=== PATIENT | female | born 2000 | race Caucasian/White ===

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

== ENCOUNTER 2018-05-04 16:04 | Emergency (ER) | payer OTHER ==
[~2018-05-04 16:04] MED LIST: [UNRECOGNIZED DRUG - OTHER] PO
[2018-05-04] MEDS ORDERED: BUSP15TA69 PO (16:17)
[2018-05-04] MEDS ORDERED: ETON68IM SQ (16:17)
--- NOTE | 2018-05-04 16:24 | ER Report ---
History and Physical Time Seen By MD: 16:24 HPI/ROS CHIEF COMPLAINT: Suicide attempt HISTORY OF PRESENT ILLNESS: This is a 18 year old female. She attempted suicide last night, unsuccessfully. Tried a bag, which she describes as a bag black led with helium. She exhaled and then put the bag over her head and breathed in. She said the technique would cause unconsciousness within 2 minutes and within 10 minutes. She says that she unfortunately woke later, suspecting that this was because she had a mixture of 80% helium instead of 100%. She does have some 100% helium on order. She is voluntary for admission to [facility] to get some help. Denies alcohol or drug use. No other self harm behaviors. Allergies: Coded Allergies: Penicillins (Verified Allergy, Intermediate, 05/04/18) hives Home Meds Reported Medications Etonogestrel (NEXPLANON) 68 Mg Implant, 68 MG SQ DIRECTED, IMPLANT 05/04/18 Buspirone Hcl (BUSPIRONE HCL) 15 Mg Tablet, 15 MG PO PRN PRN for ANXIETY, #10 TAB 05/04/18 Discontinued Reported Medications [Sentralopram] No Conflict Check, 10 MG PO 11/23/17 Reviewed Nurses Notes: Yes Hx Substance Use Disorder: No Hx Alcohol Use: No Constitutional Vital Sign - Last 24 Hours 05/04/18 05/04/18 16:09 18:11 Temp 98.1 Pulse 72 50 Resp 16 16 B/P (MAP) 117/59 101/63 (76) Pulse Ox 94 97 O2 Delivery Room Air Room Air Physical Exam General Appearance: The patient is alert, has no immediate need for airway protection and no current signs of toxicity. Eyes: Pupils equal and round no injection. ENT: Normal oral mucosa. Moist mucous membranes. Neck: Neck is supple and non tender. Respiratory: Chest is non tender, lungs are clear to auscultation. Cardiac: regular rate and rhythm Gastrointestinal: Abdomen is soft and non tender, no masses, bowel sounds normal. Musculoskeletal: Extremities have full range of motion. Skin: No rashes or lesions. DIFFERENTIAL DIAGNOSIS: After history and physical exam differential diagnosis was considered for suicidal ideation with suicide attempt last night. Medical Decision Making Data Points Result Diagram: 05/04/18 1649 05/04/18 1649 Laboratory Hematology Test 05/04/18 16:23 05/04/18 16:49 Urine Color Yellow Urine Clarity Clear Urine pH 6.0 pH (4.8-9.5) Urine Specific [place] 1.016 Urine Protein Negative mg/dL (NEGATIVE) Urine Glucose (UA) Negative mg/dL (NEGATIVE) Urine Ketones Negative mg/dL (NEGATIVE) Urine Blood Moderate (NEGATIVE) Urine Nitrite Negative (NEGATIVE) Urine Bilirubin Negative (NEGATIVE) Urine Urobilinogen Negative mg/dL (0.2-1.9) Urine Leukocyte Esterase Negative (NEGATIVE) Urine RBC 7 /HPF (0-2/HPF) Urine WBC 1 /HPF (0-5/HPF) Urine Squamous Epithelial Cells Few /LPF (</=FEW) Urine Bacteria Negative /HPF (NONE-FEW) Urine Mucus Few /HPF (NONE-FEW) Urine HCG, Qualitative Negative (NEGATIVE) Urine Opiates Screen Negative Urine Barbiturates Screen Negative Ur Tricyclic Antidepressants Screen Negative Urine Phencyclidine Screen Negative Urine Amphetamines Screen Negative Urine Benzodiazepines Screen Negative Urine Cocaine Screen Negative Urine Cannabinoids Screen Positive Red Blood Count 5.18 M/uL (4.17-5.56) Mean Corpuscular Volume 76.6 fL (80.0-96.0) Mean Corpuscular Hemoglobin 26.1 pg (26.0-33.0) Mean Corpuscular Hemoglobin Concent 34.1 g/dL (32.0-36.0) Red Cell Distribution Width 16.2 % (11.5-14.5) Mean Platelet Volume 9.7 fL (7.2-11.1) Neutrophils (%) (Auto) 68.0 % (39.4-72.5) Lymphocytes (%) (Auto) 21.9 % (17.6-49.6) Monocytes (%) (Auto) 8.1 % (4.1-12.4) Eosinophils (%) (Auto) 1.4 % (0.4-6.7) Basophils (%) (Auto) 0.6 % (0.3-1.4) Nucleated RBC Relative Count (auto) 0.1 /100WBC Neutrophils # (Auto) 7.2 K/uL (2.0-7.4) Lymphocytes # (Auto) 2.3 K/uL (1.3-3.6) Monocytes # (Auto) 0.9 K/uL (0.3-1.0) Eosinophils # (Auto) 0.2 K/uL (0.0-0.5) Basophils # (Auto) 0.1 K/uL (0.0-0.1) Nucleated RBC Absolute Count (auto) 0.01 K/uL Sodium Level 141 mmol/L (137-145) Potassium Level 3.5 mmol/L (3.5-5.0) Chloride Level 106 mmol/L (98-107) Carbon Dioxide Level 24 mmol/L (22-31) Blood Urea Nitrogen 8 mg/dl (7-18) Creatinine 0.90 mg/dl (0.52-1.04) Glomerular Filtration Rate Calc > 60.0 Random Glucose 95 mg/dl (75-110) Calcium Level 8.8 mg/dl (8.4-10.2) Magnesium Level 1.8 mg/dl (1.7-2.2) Total Bilirubin 0.4 mg/dl (0.2-1.3) Aspartate Amino Transf (AST/SGOT) 17 U/L (0-35) Alanine Aminotransferase (ALT/SGPT) 28 U/L (0-56) Alkaline Phosphatase 96 U/L (0-126) Total Protein 6.7 g/dl (6.3-8.2) Albumin 3.7 g/dl (3.5-5.0) Salicylates Level < 10 mg/L Salicylate Last Dose Date unk Acetaminophen Level < 10 ug/ml Serum Alcohol < 10 mg/dl Chemistry Test 05/04/18 16:23 05/04/18 16:49 Urine Color Yellow Urine Clarity Clear Urine pH 6.0 pH (4.8-9.5) Urine Specific [place] 1.016 Urine Protein Negative mg/dL (NEGATIVE) Urine Glucose (UA) Negative mg/dL (NEGATIVE) Urine Ketones Negative mg/dL (NEGATIVE) Urine Blood Moderate (NEGATIVE) Urine Nitrite Negative (NEGATIVE) Urine Bilirubin Negative (NEGATIVE) Urine Urobilinogen Negative mg/dL (0.2-1.9) Urine Leukocyte Esterase Negative (NEGATIVE) Urine RBC 7 /HPF (0-2/HPF) Urine WBC 1 /HPF (0-5/HPF) Urine Squamous Epithelial Cells Few /LPF (</=FEW) Urine Bacteria Negative /HPF (NONE-FEW) Urine Mucus Few /HPF (NONE-FEW) Urine HCG, Qualitative Negative (NEGATIVE) Urine Opiates Screen Negative Urine Barbiturates Screen Negative Ur Tricyclic Antidepressants Screen Negative Urine Phencyclidine Screen Negative Urine Amphetamines Screen Negative Urine Benzodiazepines Screen Negative Urine Cocaine Screen Negative Urine Cannabinoids Screen Positive White Blood Count 10.5 k/uL (4.5-11.0) Red Blood Count 5.18 M/uL (4.17-5.56) Hemoglobin 13.5 g/dL (12.0-16.0) Hematocrit 39.7 % (34.0-47.0) Mean Corpuscular Volume 76.6 fL (80.0-96.0) Mean Corpuscular Hemoglobin 26.1 pg (26.0-33.0) Mean Corpuscular Hemoglobin Concent 34.1 g/dL (32.0-36.0) Red Cell Distribution Width 16.2 % (11.5-14.5) Platelet Count 304 K/uL (150-450) Mean Platelet Volume 9.7 fL (7.2-11.1) Neutrophils (%) (Auto) 68.0 % (39.4-72.5) Lymphocytes (%) (Auto) 21.9 % (17.6-49.6) Monocytes (%) (Auto) 8.1 % (4.1-12.4) Eosinophils (%) (Auto) 1.4 % (0.4-6.7) Basophils (%) (Auto) 0.6 % (0.3-1.4) Nucleated RBC Relative Count (auto) 0.1 /100WBC Neutrophils # (Auto) 7.2 K/uL (2.0-7.4) Lymphocytes # (Auto) 2.3 K/uL (1.3-3.6) Monocytes # (Auto) 0.9 K/uL (0.3-1.0) Eosinophils # (Auto) 0.2 K/uL (0.0-0.5) Basophils # (Auto) 0.1 K/uL (0.0-0.1) Nucleated RBC Absolute Count (auto) 0.01 K/uL Glomerular Filtration Rate Calc > 60.0 Calcium Level 8.8 mg/dl (8.4-10.2) Magnesium Level 1.8 mg/dl (1.7-2.2) Total Bilirubin 0.4 mg/dl (0.2-1.3) Aspartate Amino Transf (AST/SGOT) 17 U/L (0-35) Alanine Aminotransferase (ALT/SGPT) 28 U/L (0-56) Alkaline Phosphatase 96 U/L (0-126) Total Protein 6.7 g/dl (6.3-8.2) Albumin 3.7 g/dl (3.5-5.0) Salicylates Level < 10 mg/L Salicylate Last Dose Date unk Acetaminophen Level < 10 ug/ml Serum Alcohol < 10 mg/dl Toxicology Test 05/04/18 16:23 05/04/18 16:49 Urine Opiates Screen Negative Urine Barbiturates Screen Negative Ur Tricyclic Antidepressants Screen Negative Urine Phencyclidine Screen Negative Urine Amphetamines Screen Negative Urine Benzodiazepines Screen Negative Urine Cocaine Screen Negative Urine Cannabinoids Screen Positive Salicylates Level < 10 mg/L Salicylate Last Dose Date unk Acetaminophen Level < 10 ug/ml Serum Alcohol < 10 mg/dl Urinalysis Test 05/04/18 16:23 Urine Color Yellow Urine Clarity Clear Urine pH 6.0 pH (4.8-9.5) Urine Specific [place] 1.016 Urine Protein Negative mg/dL (NEGATIVE) Urine Glucose (UA) Negative mg/dL (NEGATIVE) Urine Ketones Negative mg/dL (NEGATIVE) Urine Blood Moderate (NEGATIVE) Urine Nitrite Negative (NEGATIVE) Urine Bilirubin Negative (NEGATIVE) Urine Urobilinogen Negative mg/dL (0.2-1.9) Urine Leukocyte Esterase Negative (NEGATIVE) Urine RBC 7 /HPF (0-2/HPF) Urine WBC 1 /HPF (0-5/HPF) Urine Squamous Epithelial Cells Few /LPF (</=FEW) Urine Bacteria Negative /HPF (NONE-FEW) Urine Mucus Few /HPF (NONE-FEW) Urine HCG, Qualitative Negative (NEGATIVE) ED Course/Re-evaluation ED Course Labs unremarkable other than her drug screen being positive for Cannabinoids. Discussed with Joelle who accepted for admission to [facility]. Decision to Disposition Date: May 04, 2018 Decision to Disposition Time: 17:29 Depart Departure Latest Vital Signs Vital Signs Date Time Temp Pulse Resp B/P (MAP) Pulse Ox O2 Delivery O2 Flow Rate FiO2 05/04/18 18:11 50 16 101/63 (76) 97 Room Air 05/04/18 16:09 98.1 Impression: Primary Impression: Suicide attempt Condition: Condition Unchanged Disposition: XFER TO [facility] JOVI LOPEZ MD 1, 2018 16:24
[2018-05-04 17:03] LABS: PLATELET COUNT, AUTOMATED 304 K/uL (150-450)
[2018-05-04 18:11] VITALS: BP 101/63
== END 2018-05-04 18:36 ==
LOC: ER 16:53
DX: T59.892A Toxic effect of other specified gases, fumes and vapors, intentional self-harm, initial encounter (principal)
CPT/HCPCS: 36415; 80305; 80320; 80329; 81001; 81025; 82040; 82247; 82310; 82374; 82435; 82565; 82947; 83735; 84075; 84132; 84155; 84295; 84443; 84450; 84460; 84520; 85025; 99284

== ENCOUNTER 2018-05-04 18:08 | Inpatient (IN) | payer OTHER ==
[~2018-05-04] VITALS: Ht 177.8 cm; Wt 110.2 kg
[~2018-05-04 18:08] MED LIST changes: +BUSP15TA69 PO; +ETON68IM SQ
[2018-05-04] MEDS ORDERED: ACETAMINOPHEN 325 MG TAB PO PRN (18:35)
[2018-05-04] MEDS ORDERED: MAG HYD/AL HYD/SIMETH 30ML UDC PO PRN (18:35)
[2018-05-04 19:49] VITALS: BP 100/64
[2018-05-04 22:33] VITALS: BP 100/64
[2018-05-05 06:17] VITALS: BP 110/62
[2018-05-05] MEDS: MULTIVITAMINS TAB PO SCH (08:14)
[2018-05-05] MEDS: CHOLECALCIFEROL 1000 UNIT TAB PO SCH (12:49)
[2018-05-05] MEDS: buPROPion SR 150 MG TABCR PO SCH (12:50)
[2018-05-05] MEDS: OMEGA-3 500 MG CAP PO SCH (12:50)
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
[2018-05-05 16:38] VITALS: BP 116/74
[2018-05-06 06:30] VITALS: BP 105/68
[2018-05-06] MEDS: CHOLECALCIFEROL 1000 UNIT TAB PO SCH (08:11)
[2018-05-06] MEDS: OMEGA-3 500 MG CAP PO SCH (08:11)
[2018-05-06] MEDS: buPROPion SR 150 MG TABCR PO SCH ×2 (08:11→14:51)
[2018-05-06] MEDS: MULTIVITAMINS TAB PO SCH (08:11)
--- NOTE | 2018-05-06 10:54 | BHS Progress Note ---
[facility] - Subjective Progress Notes Subjective "I have a lot to do and I was hoping to go home today...." Client initially asking to leave. She denies SI today reporting last SI was yesterday morning. After discussion she is agreeable to stay for recommended treatment. Suicidal Ideation: Resolving Homicidal Ideation: None [facility] - Objective Physical Exam Vital Signs Laboratory Tests Test 05/05/18 11:04 Iron Level 33 ug/dl Total Iron Binding Capacity 319 ug/dl Percent Iron Saturation 10.3 % Current Medications Medications (Trade) Dose Ordered Sig/Sharif Route PRN Reason Start Time Stop Time Status Last Admin Dose Admin Al Hydrox/Mg Hydrox/Simethicone (Maalox(*) 30 ml Udcup (Or Equiv)) 30 ml Q4H PRN PO DYSPEPSIA 05/04/18 18:35 06/03/18 18:34 Multivitamins (Thera-M Enhanced Tab (Or Equiv)) 1 each QDAY PO 05/05/18 09:00 06/04/18 08:59 05/06/18 08:11 Acetaminophen (Tylenol(*)325 Mg Tab (Or Equiv)) 650 mg Q4H PRN PO HEADACHE 05/04/18 18:35 12 18:34 Bupropion HCl (Wellbutrin Sr 150 Mg Tabcr (Or Equiv)) 150 mg QAM PO 05/05/18 12:30 06/04/18 12:29 05/06/18 08:11 Cholecalciferol (Vitamin D3 1000 Unit Tab) 1,000 unit QDAY PO 05/05/18 12:30 06/04/18 12:29 05/06/18 08:11 Fricy-2-Syyz Ethyl Esters (Fish Oil 500 Mg Capsule) 1,000 mg QDAY PO 05/05/18 12:30 06/04/18 12:29 05/06/18 08:11 Deferred Vital Signs 05/05/18 05/06/18 16:38 06:30 Temp 97.8 Pulse 52 Resp 16 B/P (MAP) 105/68 (80) Pulse Ox 97 O2 Delivery Room Air Muscle Strength and Tone: WNL Gait and Station: Steady [facility] Medications Reviewed: Side Effects, Benefits of Medication, Risks Allergies Reviewed: Yes Mental Status Exam General Appearance: Casual, Well Groomed, Good Eye Contact, Cooperative, Polite, Good Interaction; No Tearful Speech: Clear, Spontaneous, Normal Rate, Normal Rhythm, Normal Volume, Normal Tone Mood: Dysthmic/Depressed Affect: Calm, Neutral Thought Process: Organized, Logical, Goal Directed; No Loose Associations, No Flight of Ideas Thought Content: Suicidal Ideation; No Homicidal Ideation, No Delusions, No Auditory Halllucinations, No Visual Hallucinations, No Thought Broadcasting, No Ideas of Reference (reports resolving) Sensorium: Clear Cognition: Alert & Oriented-Person, Alert & Oriented-Place, Alert & Oriented- Time, Lgovr-Xuvkatvh-Xrzyzcann Memory: Immediate, Recent, Remote (grossly intact) Intelligence: Average Insight Judgment: Fair [facility] Assessment and Plan Sryf-[id number] Encounter Date: May 06, 2018 [id number] Encounter Time: 09:00 [facility] Plan: Admit to Unit, Necessary Precautions, Individual/Group Therapy, Admin/Titrate Meds, Educate Patient Tobacco Medications: Not Appropriate Condition Multpiple Antipsychotics Used: No Problems: (1) Suicide attempt Status: Acute MELI LOZANO NP May 06, 2018 10:54
[2018-05-06 12:40] VITALS: BP 108/58
[2018-05-06] MEDS: FERROUS SULFATE 325 MG TAB PO SCH (17:10)
[2018-05-07 06:24] VITALS: BP 116/70
[2018-05-07] MEDS: CHOLECALCIFEROL 1000 UNIT TAB PO SCH (08:12)
[2018-05-07] MEDS: FERROUS SULFATE 325 MG TAB PO SCH (08:12)
[2018-05-07] MEDS: buPROPion SR 150 MG TABCR PO SCH (08:12)
[2018-05-07] MEDS: OMEGA-3 500 MG CAP PO SCH (08:13)
[2018-05-07] MEDS: MULTIVITAMINS TAB PO SCH (08:13)
[2018-05-07] MEDS ORDERED: FERR-53 PO (10:02)
[2018-05-07] MEDS ORDERED: OMEG1CAP39 PO (10:02)
[2018-05-07] MEDS ORDERED: BUPR-126 PO (10:03)
[2018-05-07 11:55] VITALS: BP 110/72
--- NOTE | 2018-05-07 23:32 | DISCHARGE SUMMARY ---
DATE OF ADMISSION: May 04, 2018 DATE OF DISCHARGE: May 07, 2018 ATTENDING PRACTITIONER Leyla Ahuja, Psychiatric Nurse Practitioner FINAL DIAGNOSIS Major depressive disorder, recurrent, moderate. REASON FOR ADMISSION This is a 18-year-old single female admitted to the unit on a voluntary basis after she presented to the emergency room with her parents reporting that the night before admission, she had attempted suicide. PHYSICAL EXAMINATION Please see emergency room note for a complete review of systems. She is in no physical distress today, denies pain or other physical complaints. Vital signs on the day of discharge include temperature of 97, pulse 56, blood pressure 116/70, oxygen saturations 99% on room air. LABORATORY DATA Laboratory data completed upon admission showed iron level at 33, vitamin D low at 25. Her free T4 was 1.12 and free T3 was 3.1, all within normal range. TSH had been on the lower end of normal. HCG urine was negative. Otherwise, MCV low at 76.6, RDW at 16.2 and high. She was admitted with a negative alcohol, acetaminophen and salicylate level. MENTAL STATUS EXAMINATION GENERAL APPEARANCE, BEHAVIOR AND ATTITUDE: Client is interviewed by the treatment team on the morning of discharge. She is dressed in hospital scrubs with appropriate grooming. She is pleasant and cooperative. No tearfulness noted. SPEECH: Clear and spontaneous and of normal rate, rhythm, and volume. MOOD: Described as really good, much better. AFFECT: Rangeful and mood congruent. THOUGHT PROCESSES: Overall logical and goal-directed. No loose associations or flight of ideas. THOUGHT CONTENT: She denies any suicidal thoughts. She denies homicidal thoughts. She is free of any auditory, visual, or other hallucinations. No delusions are elicited. SENSORIUM: Clear. COGNITION: Alert and oriented to person, place, time, and situation. MEMORY: Immediate, recent, and remote estimated grossly intact. INTELLIGENCE: Average, based upon interview. INSIGHT AND JUDGMENT: Improved. She acknowledges that she has been struggling with depression, and she is reporting plan to continue in outpatient management for her mental health care. She is voicing plans for the future. TREATMENT Patient was initiated on bupropion, which was titrated to 150 mg twice a day. She denied any problems with this medication. She participated in individual, group, and milieu education and therapy. HOSPITAL COURSE Patient was pleasant and cooperative throughout stay. She continued to deny suicidal thoughts once she was admitted. Her parents were involved in her care. As mentioned, she was started on bupropion SR 150 mg twice a day in treatment of depression. She was also started on iron replacement as well as vitamin D3 and fish oil. CONDITION OF PATIENT ON DISCHARGE Considered stable and a minimal risk to herself and others. Appropriate for outpatient management at this time. Patient was discharged to home in the care of her mother. The plan is for patient to go back with her parents to their house in [place] until Tuesday, at which time parents will bring her back to [place], as patient has a followup appointment with her therapist on Tuesday. It is recommended that patient follow up with primary care provider for management of psychotropic medications as well as concerns related to anemia and any other health concerns. Patient was discharged on the following medications: 1. Bupropion SR 150 mg twice a day. 2. Iron (ferrous sulfate) 325 mg. Patient reports that she actually has some of this at home. The 24-hour crisis line number was provided should symptoms or problems return. The risks, benefits, and alternatives of the above discharge plan were discussed with client. It was confirmed with patient's mother that she will be going home with her parents. Informed consent was given to proceed with the above discharge plan by this competent patient. JOAO
== END 2018-05-07 13:05 | disposition home or self-care (01) | DRG 885 ==
LOC: BHS 18:08
PROVIDERS: ADMIT Registered Nurse Psychiatric/Mental Health, Adult; ATTEND Registered Nurse Psychiatric/Mental Health, Adult
DX: F33.1 Major depressive disorder, recurrent, moderate (principal); R45.851 Suicidal ideations; T59.892A Toxic effect of other specified gases, fumes and vapors, intentional self-harm, initial encounter; D50.9 Iron deficiency anemia, unspecified; Z88.8 Allergy status to other drugs, medicaments and biological substances; Z91.5 Personal history of self-harm; Z81.8 Family history of other mental and behavioral disorders; Z88.0 Allergy status to penicillin; Z56.6 Other physical and mental strain related to work; Z55.8 Other problems related to education and literacy
CPT/HCPCS: 36415; 82306; 83540; 83550; 84439; 84481